=== PATIENT | male | born 2005 | race Caucasian/White ===

== ENCOUNTER 2024-06-24 09:03 | Emergency (ER) | payer SELFPAY ==
[~2024-06-24] VITALS: Ht 172.7 cm; Wt 79.4 kg
[2024-06-24] MEDS ORDERED: CEPHALEXIN500 M1 PO (09:54)
[2024-06-24] MEDS ORDERED: ceFAZolin sodium 1 GM VIAL IM ONE (09:55)
[2024-06-24] MEDS ORDERED: Water, Sterile 10 ML VIAL ONE (10:18)
== END 2024-06-24 10:21 | disposition home or self-care (01) ==
LOC: ED 09:03
DX: S61.012A Laceration without foreign body of left thumb without damage to nail, initial encounter (principal); W26.8XXA Contact with other sharp object(s), not elsewhere classified, initial encounter; Y93.89 Activity, other specified; Y92.219 Unspecified school as the place of occurrence of the external cause; Y99.8 Other external cause status